=== PATIENT | female | born 1975 | race Caucasian/White ===

== ENCOUNTER 2020-04-04 13:21 | Inpatient (IN) | payer MEDICAID, SELFPAY ==
[~2020-04-04] VITALS: Ht 157.5 cm; Wt 60.8 kg
[2020-04-04 13:55] VITALS: BP 121/76
--- NOTE | 2020-04-04 17:51 | NUR ---
PT MOVED TO BED 10.
[2020-04-04] MEDS ORDERED: ALBUTEROL HFA MDI 90 MCG/ACTUATION 8 GM INH ONE (18:00)
--- NOTE | 2020-04-04 18:14 | NUR ---
RT CALLED TO BEDSIDE.
[2020-04-04 18:26] LABS: BASOPHILS % (AUTO) 0.6 % (0.0-2.0); EOSINOPHILS % (AUTO) 0.4 % (0.0-4.0); HEMOGLOBIN 9.9 g/dL (12.0-16.0); LYMPHOCYTES # (AUTO) 1.6 K/uL (2.5-16.5); LYMPHOCYTES % (AUTO) 25.5 % (20.5-51.1); MEAN CORPUSCULAR HEMOGLOBIN 20 pg (27-31); MEAN CORPUSCULAR HGB CONC 31 g/dL (33-37); MEAN CORPUSCULAR VOLUME 64.2 fL (80-94); MONOCYTES # (AUTO) 0.6 K/uL (0.8-1.0); NEUTROPHILS % (AUTO) 63.5 % (42.2-75.2); PLATELET COUNT (AUTO) 311 K/uL (140-450); RED BLOOD CELL COUNT(AUTO) 4.98 MIL/uL (4.20-5.40); RED CELL DISTRIBUTION WIDTH 18.4 % (11.6-13.7); WHITE BLOOD COUNT (AUTO) 6.3 K/uL (4.8-10.8)
[2020-04-04 18:45] LABS: PROTHROMBIN TIME 9.7 secs (10.8-13.4)
--- NOTE | 2020-04-04 18:50 | NUR ---
FLU/RSV AND URINE COLLECTED AND SENT TO LAB
[2020-04-04 18:51] LABS: ALBUMIN 3.3 g/dL (3.4-5.0); ANION GAP 16.3 (8-16); CARBON DIOXIDE 23.3 mmol/L (21-32); CREATININE 0.7 mg/dL (0.6-1.3); POTASSIUM 3.6 mmol/L (3.5-5.1); TOTAL BILIRUBIN 0.5 mg/dL (0.0-1.0)
[2020-04-04 19:01] LABS: C-REACTIVE PROTEIN QUANT 6.8 mg/dL (0.0-0.9)
[2020-04-04 19:13] LABS: LACTATE DEHYDROGENASE 267 U/L (81-234)
--- NOTE | 2020-04-04 19:22 | NUR ---
RECIEVED REPORT FROM ANCA MERCADO. TRANSFER OF CARE AT THIS TIME.
[2020-04-04 19:29] LABS: APPEARANCE,URINE CLEAR (CLEAR); BILIRUBIN,URINE NEGATIVE (NEGATIVE); BLOOD, URINE 2+ (NEGATIVE); COLOR,URINE YELLOW (YELLOW); LEUKOCYTE ESTERASE ,URINE 1+ (NEGATIVE); NITRITE, URINE NEGATIVE (NEGATIVE); UGLUCOSE NEGATIVE (NEGATIVE)
[2020-04-04 19:42] LABS: RBC,URINE 11-20 (MOD) /HPF (0-5)
--- NOTE | 2020-04-04 20:10 | NUR ---
EKG AT BEDSIDE
--- NOTE | 2020-04-04 20:15 | NUR ---
EKG PERFORMED AT BEDSIDE. EKG READS SINUS RHYTHM @ 98
--- NOTE | 2020-04-04 21:00 | NUR ---
WATER PROVIDED TO PT PER REQUEST. PT RESTING IN BED. EQUAL CHEST RISE AND FALL. SIDE RAILS X1. WHOLESALE PARTS SALESPERSON/PULSE OX IN PLACE. BED LOCKED AND IN LOWEST POSITION.
--- NOTE | 2020-04-04 22:45 | NUR ---
SWABS COLLECTED AND TAKEN TO LAB.
[2020-04-04] MEDS ORDERED: ONDANSETRON 4 MG/2 ML VIAL IM/IVP PRN (23:15)
[2020-04-04] MEDS ORDERED: DOCUSATE SODIUM 100 MG GELCAP PO PRN (23:15)
[2020-04-04] MEDS ORDERED: ACETAMINOPHEN 325 MG TAB PO PRN (23:15)
[2020-04-04] MEDS ORDERED: HYDROcodone/APAP 7.5/325 MG 1 TAB PO PRN (23:15)
[2020-04-04] MEDS ORDERED: guaiFENesin DM 200/20 MG-10 ML 10 ML UDC PO PRN (23:15)
[2020-04-04] MEDS ORDERED: POTASSIUM CHLORIDE 10 MEQ TABER PO PRN (23:15)
[2020-04-04] MEDS ORDERED: ZOLPIDEM 5 MG TAB PO PRN (23:15)
[2020-04-04] MEDS ORDERED: ALBUTEROL HFA MDI 90 MCG/ACTUATION 8 GM INH PRN (23:20)
[2020-04-04] MEDS ORDERED: ALBUTEROL SULFATE/IPRATROPIU 3 ML SOL IH PRN (23:20)
--- NOTE | 2020-04-04 23:25 | NUR ---
REPORT GIVEN TO ANCA JOHNSON. EXT [id number]
--- NOTE | 2020-04-04 23:32 | NUR ---
JAVI BURNS COVID SWABS SENT TO LAB
[2020-04-04 23:48] VITALS: BP 110/73
--- NOTE | 2020-04-04 23:48 | NUR ---
Patient will be admitted to care of . Admited to TELE. Will go to room 130B. Belongings list completed. Report to ANCA JOHNSON.
--- NOTE | 2020-04-04 23:48 | NUR ---
ADMITTED A 45F FROM ER. CAME BY [facility] DUE TO FEVER,SOB, MILD COUGH , GEN WEAKNESS . LOSS OF SMELL.TASTE AND DIARRHEA X 6 DAYS. SHE SAID SHE JUST TOOK TYLENOL, AT HOME. NO OTHER MEDICAL PROBLEM. SKIN INTACT. SHE SAID NOW SHE GET BACK HER APPETITE AND ABLE TO SMELL ANYTHING. VITAL SIGNS TAKEN, AFEBRILE 98.8-HR-89,R-20WITH O2 SAT 96% ON O2 3L/NC. PLAN OF CARE DISCUSSED AND VERBALIZED UNDERSTANDING. ORIENTED TO HOSPITAL ENVIRONMENT AND ROUTINES. INITIATED DROPLET PRECAUTION /ISOLATION FOR COVID FOR SHE WAS TESTED POSITIVE ALMOST A WEEK AGO. FREQ ROUNDS NEEDED. BED ON LOW POSITION. CALL LIGHT PLACED WITHIN REACH. WILL CONTINUE TO MONITOR.
--- NOTE | 2020-04-04 23:55 | NUR ---
PT REFUSING ANY BLOOD TRANSFUSION DUE TO HER PRESYBETERIAN JEHOVAH WITNESS.
[2020-04-05] LABS: CHOL/HDL RATIO 4.1 (1-4.5); FREE T4 (FREE THYROXINE) 1.59 ng/dL (0.76-1.46); MAGNESIUM 2.5 mg/dL (1.8-2.4); PHOSPHORUS 3.7 mg/dL (2.5-4.9); THYROID STIMULATING HORMONE 2.82 uIU/mL (0.34-3.74)
[2020-04-05 00:03] LABS: RSV NEGATIVE (NEGATIVE)
[2020-04-05] MEDS ORDERED: cefTRIAXone 1,000 MG VIAL ONE (00:08)
[2020-04-05] MEDS: NACL 0.9% 1,000 ML IV SCH ×2 (00:19→15:55)
[2020-04-05 01:10] LABS: BARBITURATE, URINE NEGATIVE ng/ml (NEG <=200); BENZODIAZEPINE, URINE NEGATIVE ng/mL (NEG <=200); CANNABINOID, URINE NEGATIVE ng/mL (NEG <=50); COCAINE, URINE NEGATIVE ng/mL (NEG <=300); OPIATE, URINE NEGATIVE ng/mL (NEG <=2000); PHENCYCLIDINE SCREEN,URINE NEGATIVE ng/mL (NEG <=25)
--- NOTE | 2020-04-05 01:30 | NUR ---
MADE ROUNDS. PT IS ASLEEP. NO DISTRESS NOTED. O2 SAT 96%. WILL CONTINUE TO MONITOR.
--- NOTE | 2020-04-05 03:00 | NUR ---
CHECKED ON PT. ASLEEP. O2 SAT ON O23L/NC 95 %. NO DISTRESS NOTED.
[2020-04-05 04:00] VITALS: BP 102/63
--- NOTE | 2020-04-05 05:00 | NUR ---
CHECKED ON PT. AWAKE, NO C/O ANY DISCOMFORT . NO DISTRESS NOTED WITH O2 3L/NC.
[2020-04-05 06:19] LABS: BASOPHILS % (AUTO) 0.3 % (0.0-2.0); EOSINOPHILS # (AUTO) 0.1 K/uL (0-0.4); EOSINOPHILS % (AUTO) 0.8 % (0.0-4.0); HEMATOCRIT 29.1 % (36-48); HEMOGLOBIN 8.9 g/dL (12.0-16.0); LYMPHOCYTES # (AUTO) 1.3 K/uL (2.5-16.5); LYMPHOCYTES % (AUTO) 17.1 % (20.5-51.1); MEAN CORPUSCULAR HEMOGLOBIN 20 pg (27-31); MEAN CORPUSCULAR HGB CONC 31 g/dL (33-37); MEAN CORPUSCULAR VOLUME 64.7 fL (80-94); MONOCYTES # (AUTO) 0.7 K/uL (0.8-1.0); MONOCYTES % (AUTO) 9.4 % (1.7-9.3); NEUTROPHILS # (AUTO) 5.6 K/uL (1.8-7.7); NEUTROPHILS % (AUTO) 72.4 % (42.2-75.2); PLATELET COUNT (AUTO) 322 K/uL (140-450); RED BLOOD CELL COUNT(AUTO) 4.49 MIL/uL (4.20-5.40); WHITE BLOOD COUNT (AUTO) 7.8 K/uL (4.8-10.8)
--- NOTE | 2020-04-05 06:30 | NUR ---
MADE ROUNDS. PT IS AWAKE. DENIESS ANY PAIN NOR DISCOMFORT NOTED.
[2020-04-05 06:57] LABS: ANION GAP 13.4 (8-16); CARBON DIOXIDE 25.3 mmol/L (21-32); CREATININE 0.6 mg/dL (0.6-1.3); POTASSIUM 3.7 mmol/L (3.5-5.1)
--- NOTE | 2020-04-05 07:33 | NUR ---
ENDORSED PT IN STABLE CONDITION TO AM NURSE FOR CONTINUITY OF CARE.
--- NOTE | 2020-04-05 07:35 | NUR ---
RECEIVED PT FROM CLERK FUNERAL DETAIL NURSE, PT IS AWAKE AND ALERT AND ORIENTED, LYING ON THE BED WITH SIDE RAILS UP AND CALL LIGHT WITHIN REACH, IV LINE NOTED ON THE LEFT AC G. 20 WITH NS INFUSING AT 60ML/HR, PT IS ON ROOM AIR AND NO SIGN OF DISTRESS NOTED AND WILL CONTINUE TO MONITOR PT.
--- NOTE | 2020-04-05 07:45 | NUR ---
PATIENT HAS BEEN SCREENED AND CATEGORIZED MODERATE NUTRITION RISK. PATIENT WILL BE SEEN WITHIN 3-5 DAYS OF ADMISSION. 04/07/2020 - 04/09/2020 VALDO CHUA MBA, RD
[2020-04-05 08:00] VITALS: BP 114/85
--- NOTE | 2020-04-05 08:40 | NUR ---
PT'S IV LINE WAS INFILTRATED AND WAS REMOVED, A RE-INSERTION WILL BE DONE.
[2020-04-05] MEDS ORDERED: AZITHROMYCIN 250 MG TAB PO SCH (09:00)
[2020-04-05] MEDS: ZINC SULF 220 MG CAP PO SCH (09:31)
[2020-04-05] MEDS: ASCORBIC ACID 500 MG TAB PO SCH (09:31)
[2020-04-05] MEDS: PANTOPRAZOLE 40 MG TABEC PO SCH (09:31)
--- NOTE | 2020-04-05 09:31 | NUR ---
PT WAS GIVEN THE SCHEDULED AM MEDICATIONS, PARAMETERS CHECKED AND WILL MONITOR PT.
--- NOTE | 2020-04-05 11:40 | NUR ---
A NEW PERIPHERAL LINE WA INSERTED TO PT ON THE RT HAND G. 22.
[2020-04-05 12:00] VITALS: BP 113/82
[2020-04-05] MEDS ORDERED: remdesivir COMMUNICATION ORDER 1 EA MISC MC PRN (14:50)
[2020-04-05] MEDS ORDERED: CLINICAL MONITORING MC PRN (15:20)
--- NOTE | 2020-04-05 15:20 | NUR ---
DR. RIVERA WAS INFORMED THAT PT IS A MANDAEN AND CANNOT HAVE ANY BLOOD TRANSFUSION.
[2020-04-05 16:00] VITALS: BP 111/73
[2020-04-05] MEDS ORDERED: REMDESIVIR (EUA) 200 MG in NACL 0.9% 100 ML IV SCH (16:30)
--- NOTE | 2020-04-05 17:17 | NUR ---
PT WAS GIVEN IVPB REMDESIVIR NOW, WILL MONITOR PT.
--- NOTE | 2020-04-05 19:30 | NUR ---
RECEIVED BEDSIDE REPORT FROM DAY SHIFT NURSE. PATIENT IS AWAKE, ALERT, AND COOPERATIVE. RESPIRATION EVEN UNLABORED ON 3L NC O2. NO DISTRESS NOTED. SATING AT 95%. SKIN IS WARM AND DRY. IV PATENT AND INTACT. PLAN OF CARE WAS DISCUSSED. ALL SAFETY MEASURES IN PLACE. BED IS AT LOW POSITION. CALL LIGHT WITHIN REACH. WILL CONTINUE TO MONITOR.
--- NOTE | 2020-04-05 19:45 | NUR ---
ENDORSED PT TO FIRE CAPTAIN MARINE NURSE FOR CONTINUITY OF CARE.
[2020-04-05 20:00] VITALS: BP 108/74
--- NOTE | 2020-04-05 20:54 | NUR ---
ALL SCHEDULED MEDS WERE GIVEN PER ORDER. NO ASE NOTED. WILL CONTINUE TO MONITOR.
--- NOTE | 2020-04-05 21:55 | NUR ---
PATIENT O2 IS AT 88% TITRATE O2 UP. NOW PATIENT IS SATING 90-91% ON 4L NC O2. WILL CONTINUE TO MONITOR
--- NOTE | 2020-04-05 23:27 | NUR ---
CHECKED PATIENT. PATIENT IS AWAKE WATCHING TV RESPIRATION EVEN UNLABORED ON 4L NC O2. NO DISTRESS NOTED. WILL CONTINUE TO MONITOR.
[2020-04-06] VITALS: BP 117/75
--- NOTE | 2020-04-06 00:16 | NUR ---
VITALS WERE TAKEN. PATIENT IN STABLE CONDITION. NO DISTRESS NOTED. WILL CONTINUE TO MONITOR.
--- NOTE | 2020-04-06 02:26 | NUR ---
CHECKED PATIENT. PATIENT SLEEPING RESPIRATION EVEN UNLABORED ON 4L NC O2. NO DISTRESS NOTED. WILL CONTINUE TO MONITOR.
--- NOTE | 2020-04-06 03:51 | NUR ---
CHECKED PATIENT. PATIENT IS SLEEPING RESPIRATION EVEN UNLABORED ON 4L NC O2. NO DISTRESS NOTED. WILL CONTINUE TO MONITOR.
[2020-04-06 04:00] VITALS: BP 111/82
[2020-04-06] MEDS: NACL 0.9% 1,000 ML IV SCH (04:32)
[2020-04-06 06:21] LABS: BASOPHILS % (AUTO) 0.5 % (0.0-2.0); EOSINOPHILS % (AUTO) 0.1 % (0.0-4.0); HEMATOCRIT 28.3 % (36-48); HEMOGLOBIN 8.7 g/dL (12.0-16.0); LYMPHOCYTES # (AUTO) 1.2 K/uL (2.5-16.5); LYMPHOCYTES % (AUTO) 18.3 % (20.5-51.1); MEAN CORPUSCULAR HEMOGLOBIN 20 pg (27-31); MEAN CORPUSCULAR HGB CONC 31 g/dL (33-37); MEAN CORPUSCULAR VOLUME 65.4 fL (80-94); MONOCYTES # (AUTO) 0.6 K/uL (0.8-1.0); MONOCYTES % (AUTO) 9.1 % (1.7-9.3); NEUTROPHILS # (AUTO) 4.7 K/uL (1.8-7.7); PLATELET COUNT (AUTO) 365 K/uL (140-450); RED BLOOD CELL COUNT(AUTO) 4.33 MIL/uL (4.20-5.40); RED CELL DISTRIBUTION WIDTH 18.2 % (11.6-13.7); WHITE BLOOD COUNT (AUTO) 6.5 K/uL (4.8-10.8)
[2020-04-06] MEDS: ALBUTEROL SULFATE/IPRATROPIU 3 ML SOL IH SCH ×3 (06:54→19:00)
--- NOTE | 2020-04-06 07:15 | NUR ---
ENDORSED PATIENT TO DAY SHIFT NURSE AT BEDSIDE FOR CONTINUITY OF CARE
--- NOTE | 2020-04-06 07:20 | NUR ---
RECEIVED REPORT FROM NIGHT NURSE PATIENT IS AAOX4 ON 4LPM OXYGEN VIA NASAL CANULA, REGULAR DIET, AMBULATORY, SKIN INTACT, IV SITES INTACT AND PATENT ON LEFT AC, REFUSED PLASMA DUE TO PATIENTS JEW( JEHOVA), SAFETY MEASURES IN PLACE AND CALL LIGHT WITHIN REACH. WILL CONTINUE TO MONITOR.
[2020-04-06 07:25] LABS: ANION GAP 13.8 (8-16); CARBON DIOXIDE 24.4 mmol/L (21-32); CREATININE 0.5 mg/dL (0.6-1.3); POTASSIUM 4.2 mmol/L (3.5-5.1)
[2020-04-06 08:00] VITALS: BP 130/91
[2020-04-06] MEDS: FERROUS SULFATE 325 MG TABEC PO SCH ×2 (09:13→16:05)
[2020-04-06] MEDS: ASCORBIC ACID 500 MG TAB PO SCH (09:14)
[2020-04-06] MEDS: ZINC SULF 220 MG CAP PO SCH (09:14)
[2020-04-06] MEDS: PANTOPRAZOLE 40 MG TABEC PO SCH (09:14)
[2020-04-06 09:30] LABS: ALBUMIN 2.9 g/dL (3.4-5.0); BILIRUBIN,DIRECT 0.1 mg/dL (0.0-0.3); TOTAL BILIRUBIN 0.3 mg/dL (0.0-1.0)
--- NOTE | 2020-04-06 09:35 | NUR ---
MEDICATION DUE GIVEN CHECK VITAL SIGNS BP 130/91 WV 96 NO DISTRESS NOTED AND DENIES PAIN. SAFETY MEASURES IN PLACE CALL LIGHT WITHIN REACH.WILL CONTINUE TO MONITOR.
--- NOTE | 2020-04-06 11:02 | NUR ---
MADE ROUNDS AT THIS TIME, STILL WITH SHORTNESS OF BREATH WHEN MOVING AROUND, ENCOURAGED TO DO DEEP BREATHING EXERCISES AND PT VERBALIZES UNDERSTANDING. CALL LIGHT WITHIN REACH.
[2020-04-06 12:00] VITALS: BP 121/74
--- NOTE | 2020-04-06 14:45 | NUR ---
MADE ROUNDS PATIENT IS SLEEPING AND RESTING NO DISTRESS NOTED
[2020-04-06 16:00] VITALS: BP 124/80
[2020-04-06] MEDS ORDERED: REMDESIVIR (EUA) 100 MG in NACL 0.9% 100 ML IV SCH (16:30)
--- NOTE | 2020-04-06 16:30 | NUR ---
MEDICATION DUE GIVEN, INFUSING WELL, PATIENT IS STABLE AND NO DISTRESS NOTED.OXYGEN SATURATION AT 95%
--- NOTE | 2020-04-06 19:12 | NUR ---
ENDORSED TO NIGHT NURSE FOR CONTINUITY OF CARE. PT IS STABLE.
--- NOTE | 2020-04-06 19:27 | NUR ---
RECEIVED BEDSIDE REPORT FROM DAY SHIFT NURSE. PATIENT IS AWAKE ON HER PHONE RESPIRATION EVEN UNLABORED ON 4L NC O2. NO DISTRESS NOTED. SKIN IS WARM AND DRY. IV PATENT AND INTACT. PLAN OF CARE WAS DISCUSSED. ALL SAFETY MEASURES IN PLACE. BED IS AT LOW POSITION. CALL LIGHT WITHIN REACH, WILL CONTINUE TO MONITOR.
[2020-04-06 20:00] VITALS: BP 130/77
--- NOTE | 2020-04-06 21:20 | NUR ---
ALL SCHEDULED MEDS WERE GIVEN PER ORDER. NO ASE NOTED. WILL CONTINUE TO MONITOR.
--- NOTE | 2020-04-06 23:20 | NUR ---
CHECKED PATIENT. PATIENT IS AWAKE WATCHING TV NO DISTRESS NOTED. WILL CONTINUE TO MONITOR.
--- NOTE | 2020-04-06 23:27 | NUR ---
DUONEB TX BEING HOLD DUE TO COVID POSITIVE PRECAUTION
[2020-04-07] VITALS: BP 138/85
[2020-04-07] MEDS ORDERED: cefTRIAXone 1,000 MG VIAL ONE (00:20)
[2020-04-07] MEDS: ALBUTEROL SULFATE/IPRATROPIU 3 ML SOL IH SCH ×4 (01:00→19:00)
[2020-04-07] MEDS: NACL 0.9% 1,000 ML IV SCH ×2 (01:15→18:17)
--- NOTE | 2020-04-07 02:17 | NUR ---
CHECKED PATIENT. PATIENT IS SLEEPING RESPIRATION EVEN UNLABORED ON 4L NC O2. NO DISTRESS NOTED. WILL CONTINUE TO MONITOR.
--- NOTE | 2020-04-07 03:05 | NUR ---
PATIENT WOKE UP FROM BEING COLD. GAVE BLANKET. WILL CONTINUE TO MONITOR
[2020-04-07 04:00] VITALS: BP 134/87
--- NOTE | 2020-04-07 04:30 | NUR ---
CHECKED PATIENT. PATIENT STILL SLEEPING NO DISTRESS NOTED. WILL CONTINUE TO MONITOR
[2020-04-07 06:07] LABS: T4 (THYROXINE) 11.9 ug/dL (4.5-12.0)
--- NOTE | 2020-04-07 07:20 | NUR ---
ENDORSED PATIENT TO DAY SHIFT NURSE AT BEDSIDE FOR CONTINUITY OF CARE
--- NOTE | 2020-04-07 07:25 | NUR ---
RECEIVED PT FROM CLEAT FEEDER NURSE, CLEMENCIA, PT IS AWAKE AND LYING ON THE BED WITH SAFETY AND FALL PRECAUTION IN PLACE, IV LINE NOTED ON THE RT HAND G. 22 WITH NS INFUSING AT 60ML/HR, INTACT, PT IS ON O2 4L NC, SATURATION AT 95%, NO SIGN OF DISTRESS NOTED AND WILL MONITOR PT.
[2020-04-07 08:00] VITALS: BP 128/78
[2020-04-07] MEDS: FERROUS SULFATE 325 MG TABEC PO SCH ×2 (08:25→17:21)
[2020-04-07] MEDS: ZINC SULF 220 MG CAP PO SCH (08:28)
[2020-04-07] MEDS: PANTOPRAZOLE 40 MG TABEC PO SCH (08:28)
[2020-04-07] MEDS: ASCORBIC ACID 500 MG TAB PO SCH (08:28)
--- NOTE | 2020-04-07 08:28 | NUR ---
PT WAS GIVEN THE SCHEDULED AM MEDICATIONS NOW, DENIES PAIN AND TOLERATED MEDS, WILL MONITOR PT.
[2020-04-07 09:13] LABS: FERRITIN 60 ng/mL (15-150); TRANSFERRIN 274 mg/dL (192-364)
[2020-04-07 09:14] LABS: BASOPHILS % (AUTO) 0.4 % (0.0-2.0); EOSINOPHILS % (AUTO) 0.1 % (0.0-4.0); HEMATOCRIT 30.4 % (36-48); HEMOGLOBIN 9.2 g/dL (12.0-16.0); LYMPHOCYTES # (AUTO) 2.2 K/uL (2.5-16.5); LYMPHOCYTES % (AUTO) 24.5 % (20.5-51.1); MEAN CORPUSCULAR HEMOGLOBIN 20 pg (27-31); MEAN CORPUSCULAR HGB CONC 30 g/dL (33-37); MEAN CORPUSCULAR VOLUME 65.8 fL (80-94); MONOCYTES # (AUTO) 0.9 K/uL (0.8-1.0); MONOCYTES % (AUTO) 9.7 % (1.7-9.3); NEUTROPHILS # (AUTO) 5.9 K/uL (1.8-7.7); NEUTROPHILS % (AUTO) 65.3 % (42.2-75.2); PLATELET COUNT (AUTO) 485 K/uL (140-450); RED BLOOD CELL COUNT(AUTO) 4.63 MIL/uL (4.20-5.40); RED CELL DISTRIBUTION WIDTH 18.8 % (11.6-13.7); WHITE BLOOD COUNT (AUTO) 9.1 K/uL (4.8-10.8)
[2020-04-07 09:28] LABS: CARBON DIOXIDE 22.8 mmol/L (21-32); CREATININE 0.6 mg/dL (0.6-1.3); POTASSIUM 3.8 mmol/L (3.5-5.1)
[2020-04-07 09:30] LABS: BILIRUBIN,DIRECT 0.1 mg/dL (0.0-0.3); TOTAL BILIRUBIN 0.3 mg/dL (0.0-1.0)
[2020-04-07] MEDS: REMDESIVIR (EUA) 100 MG in NACL 0.9% 100 ML IV SCH (10:29)
--- NOTE | 2020-04-07 10:29 | NUR ---
REMDESIVIR IVPB WAS GIVEN TO PT NOW, WILL MONITOR PT.
[2020-04-07] MEDS ORDERED: REMDESIVIR (EUA) 100 MG in NACL 0.9% 100 ML IV SCH (10:30)
[2020-04-07 12:00] VITALS: BP 119/67
--- NOTE | 2020-04-07 14:14 | NUR ---
PT IS RESTING ON THE BED NOW, SATURATION IS 98%, NO SIGN OF DISTRESS NOTED AND WILL BE MONITORED.
[2020-04-07 16:00] VITALS: BP 121/71
--- NOTE | 2020-04-07 17:21 | NUR ---
PT WAS GIVEN THE SCHEDULED MEDICATIONS, NO SIGN OF DISTRESS NOTED AND WILL MONITOR PT.
--- NOTE | 2020-04-07 19:00 | NUR ---
RECEIVED BEDSIDE REPORT FROM DAY SHIFT NURSE. PATIENT IS AWAKE, ALERT, AND COOPERATIVE. RESPIRATION EVEN UNLABORED ON 4L NC O2. NO DISTRESS NOTED. SKIN IS WARM AND DRY. IV PATENT AND INTACT. PLAN OF CARE WAS DISCUSSED. ALL SAFETY MEASURE IN PLACE. BED IS AT LOW POSITION. CALL LIGHT WITHIN REACH. WILL CONTINUE TO MONITOR.
--- NOTE | 2020-04-07 19:20 | NUR ---
ENDORSED PT TO ORTHOTIC/PROSTHETIC PRACTITIONER NURSE FOR CONTINUITY OF CARE.
[2020-04-07 20:00] VITALS: BP 117/78
--- NOTE | 2020-04-07 21:17 | NUR ---
ALL SCHEDULED MEDS WERE GIVEN PER ORDER NO ASE NOTED. WILL CONTINUE TO MONITOR
--- NOTE | 2020-04-07 22:45 | NUR ---
TITRATE PATIENT O2 TO 3L NC. PATIENT IS SATING 94% WITH NO DISTRESS NOTED. WILL CONTINUE TO MONITOR.
--- NOTE | 2020-04-07 22:52 | NUR ---
TX (DUONEB) NOT GIVEN AT THIS TIME DUE TO COVID PROTOCOL
[2020-04-08] VITALS: BP 124/76
--- NOTE | 2020-04-08 00:05 | NUR ---
VITALS WERE TAKEN. PATIENT IN STABLE CONDITION. NO DISTRESS NOTED. WILL CONTINUE TO MONITOR
--- NOTE | 2020-04-08 02:08 | NUR ---
CHECKED ON PATIENT. PATIENT SLEEPING RESPIRATION EVEN UNLABORED ON 3L NC O2. SATING 95% NO DISTRESS NOTED. WILL CONTINUE TO MONITOR.
[2020-04-08 04:00] VITALS: BP 130/87
--- NOTE | 2020-04-08 04:30 | NUR ---
VITALS WERE TAKEN. PATIENT IN STABLE CONDITION. WILL CONTINUE TO MONITOR
[2020-04-08] MEDS: ALBUTEROL SULFATE/IPRATROPIU 3 ML SOL IH SCH ×2 (06:45→12:55)
[2020-04-08 07:02] LABS: BASOPHILS % (AUTO) 0.2 % (0.0-2.0); EOSINOPHILS % (AUTO) 0.3 % (0.0-4.0); HEMATOCRIT 28.2 % (36-48); HEMOGLOBIN 8.8 g/dL (12.0-16.0); LYMPHOCYTES # (AUTO) 2.3 K/uL (2.5-16.5); LYMPHOCYTES % (AUTO) 28.3 % (20.5-51.1); MEAN CORPUSCULAR HEMOGLOBIN 20 pg (27-31); MEAN CORPUSCULAR HGB CONC 31 g/dL (33-37); MEAN CORPUSCULAR VOLUME 65.7 fL (80-94); MONOCYTES # (AUTO) 0.8 K/uL (0.8-1.0); MONOCYTES % (AUTO) 9.9 % (1.7-9.3); NEUTROPHILS # (AUTO) 5.1 K/uL (1.8-7.7); NEUTROPHILS % (AUTO) 61.3 % (42.2-75.2); PLATELET COUNT (AUTO) 468 K/uL (140-450); WHITE BLOOD COUNT (AUTO) 8.3 K/uL (4.8-10.8)
[2020-04-08 07:06] LABS: ANION GAP 12.7 (8-16); CARBON DIOXIDE 26.3 mmol/L (21-32); CREATININE 0.6 mg/dL (0.6-1.3)
--- NOTE | 2020-04-08 07:23 | NUR ---
ENDORSED PATIENT TO DAY SHIFT NURSE AT BEDSIDE FOR CONTINUITY OF CARE
[2020-04-08 07:39] LABS: PHOSPHORUS 4.2 mg/dL (2.5-4.9)
[2020-04-08 07:50] VITALS: BP 117/72
--- NOTE | 2020-04-08 07:50 | NUR ---
PT RESTING SEMI FOWLERS AND STATES NO PAIN. TOLERATING NC 3 LPM.
[2020-04-08] MEDS: PANTOPRAZOLE 40 MG TABEC PO SCH (08:31)
[2020-04-08] MEDS: ASCORBIC ACID 500 MG TAB PO SCH (08:31)
[2020-04-08] MEDS: ZINC SULF 220 MG CAP PO SCH (08:31)
[2020-04-08] MEDS: FERROUS SULFATE 325 MG TABEC PO SCH ×2 (08:31→17:02)
[2020-04-08] MEDS: ENOXAPARIN 40 MG/0.4 ML SYR SUBQ SCH (08:32)
--- NOTE | 2020-04-08 10:38 | NUR ---
PT STATES NO PAIN AND WAS ABLE TO AMBULATE W/ STEADY GAIT TO THE BATHROOM. TOLERATING NC 3 LPM.
[2020-04-08] MEDS: NACL 0.9% 1,000 ML IV SCH (10:44)
[2020-04-08] MEDS: REMDESIVIR (EUA) 100 MG in NACL 0.9% 100 ML IV SCH (10:44)
[2020-04-08 10:53] LABS: ALBUMIN 2.8 g/dL (3.4-5.0); BILIRUBIN,DIRECT 0.1 mg/dL (0.0-0.3); TOTAL BILIRUBIN 0.2 mg/dL (0.0-1.0)
[2020-04-08 12:00] VITALS: BP 116/75
--- NOTE | 2020-04-08 13:54 | NUR ---
PT STATES NO PAIN AT THIS TIME AND RESTING ON BED WHILE WATCHING VIDEOS ON PHONE. PT TOLERATING NC 3LPM.
--- NOTE | 2020-04-08 14:19 | NUR ---
(04/08/20) RD INITIAL ASSESSMENT COMPLETED PLEASE REFER TO NUTRITION ASSESSMENT UNDER CARE ACTIVITY FOR ESTIMATED NUTRITIONAL NEEDS. RD RECOMMENDATIONS: 1. CONTINUE ON REGULAR DIET TOLERATED. 2. CONSULT RDN PRN. 3. RD WILL F/U 3-5 DAYS; MODERATE RISK. CHIDI PARRA MS, RDN
[2020-04-08 16:00] VITALS: BP 124/80
--- NOTE | 2020-04-08 17:02 | NUR ---
PT RESTING HIGH FOWLERS ON BED AND STATES NO PAIN. TOLERATING NC 3LPM.
--- NOTE | 2020-04-08 18:36 | NUR ---
PT COMFORTABLE IN BED AND STATES NO PAIN OR DISCOMFORT. PT REQUESTED EAR PLUGS SO SHE CAN BE ABLE TO SLEEP. PT STABLE AND WILL ENDORSE CARE TO DERRICK BARGE OPERATOR RN.
--- NOTE | 2020-04-08 19:25 | NUR ---
RECEIVED PT AAOX4 , NID - O2 SAT WNL , ON 02 AT 4LPM /NC IV SITE INTACT AND PATENT , DENIES ANY PAIN . PLAN OF CARE DISCUSSED NEEDS REINFORCEMENT DUE TO LANGUAGE BARRIER . SAFETY MEASURES IN PLACE - CALL LIGHT WITHIN REACH . ON TELE MONITOR - SR . ALEM CONT. TO MONITOR .
[2020-04-08 21:22] VITALS: BP 114/84
[2020-04-08] MEDS ORDERED: cefTRIAXone 1,000 MG VIAL ONE (22:24)
--- NOTE | 2020-04-09 | NUR ---
MADE ROUNDS , NO S/SX OF ACUTE DISTRESS NOTED AT THIS TIME . CALL LIGHT WITHIN REACH .
[2020-04-09 00:54] VITALS: BP 92/58
[2020-04-09] MEDS: NACL 0.9% 1,000 ML IV SCH (03:15)
--- NOTE | 2020-04-09 04:00 | NUR ---
O2 SAT WNL . ON TELE MONITOR . NO S/SX OF ACUTE DISTRESS NOTED . CALL LIGHT WITHIN REACH .
[2020-04-09 04:10] VITALS: BP 114/70
--- NOTE | 2020-04-09 06:00 | NUR ---
AWAKE , NO COMPLAIN MADE .
[2020-04-09 07:18] LABS: BASOPHILS % (AUTO) 0.2 % (0.0-2.0); EOSINOPHILS % (AUTO) 0.2 % (0.0-4.0); HEMATOCRIT 29.7 % (36-48); HEMOGLOBIN 9.1 g/dL (12.0-16.0); LYMPHOCYTES # (AUTO) 2.3 K/uL (2.5-16.5); LYMPHOCYTES % (AUTO) 25.4 % (20.5-51.1); MEAN CORPUSCULAR HEMOGLOBIN 20 pg (27-31); MEAN CORPUSCULAR HGB CONC 31 g/dL (33-37); MEAN CORPUSCULAR VOLUME 65.6 fL (80-94); MONOCYTES % (AUTO) 11.1 % (1.7-9.3); NEUTROPHILS # (AUTO) 5.6 K/uL (1.8-7.7); NEUTROPHILS % (AUTO) 63.1 % (42.2-75.2); PLATELET COUNT (AUTO) 564 K/uL (140-450); RED BLOOD CELL COUNT(AUTO) 4.53 MIL/uL (4.20-5.40); RED CELL DISTRIBUTION WIDTH 19.1 % (11.6-13.7); WHITE BLOOD COUNT (AUTO) 8.9 K/uL (4.8-10.8)
--- NOTE | 2020-04-09 07:20 | NUR ---
RECEIVED REPORT FROM NIGHT NURSE PATIENT IS AAOX4, AMBULATORY, ON 3LPM OXYGEN VIA NC, IV SITES INTACT AND PATENT ON LEFT HAND, SKIN INTACT. SAFETY MEASURES IN PLACE CALL LIGHT WITHIN REACH. WILL CONTINUE TO MONITOR,
[2020-04-09 07:24] LABS: MAGNESIUM 2.1 mg/dL (1.8-2.4); PHOSPHORUS 4.1 mg/dL (2.5-4.9)
[2020-04-09 08:00] VITALS: BP 121/78
[2020-04-09 08:22] LABS: ANION GAP 14.3 (8-16); CARBON DIOXIDE 22.6 mmol/L (21-32); CREATININE 0.6 mg/dL (0.6-1.3); POTASSIUM 3.9 mmol/L (3.5-5.1)
--- NOTE | 2020-04-09 09:00 | NUR ---
MEDICATION DUE GIVEN, PATIENT SITTING AND EATING, NO DISTRESS NOTED, VITAL SIGNS CHECK PRIOR TP MEDICATION BP 130/71 OK 73. SAFETY MEASURES IN PLACE CALL LIGHT WITHIN REACH. WILL CONTINUE TO MONITOR.
[2020-04-09] MEDS: ZINC SULF 220 MG CAP PO SCH (09:07)
[2020-04-09] MEDS: FERROUS SULFATE 325 MG TABEC PO SCH (09:07)
[2020-04-09] MEDS: ASCORBIC ACID 500 MG TAB PO SCH (09:07)
[2020-04-09] MEDS: PANTOPRAZOLE 40 MG TABEC PO SCH (09:07)
[2020-04-09] MEDS: ENOXAPARIN 40 MG/0.4 ML SYR SUBQ SCH (09:17)
[2020-04-09] MEDS ORDERED: ZINC220C28 PO (09:22)
[2020-04-09] MEDS ORDERED: FER325 PO (09:22)
[2020-04-09] MEDS ORDERED: DEXA6TAB1 PO (09:22)
[2020-04-09] MEDS ORDERED: VITC500 PO (09:22)
[2020-04-09] MEDS ORDERED: ASPI-1822 PO (09:22)
[2020-04-09] MEDS ORDERED: CHOL400T12 PO (09:22)
[2020-04-09 09:53] LABS: ALBUMIN 2.8 g/dL (3.4-5.0); BILIRUBIN,DIRECT 0.1 mg/dL (0.0-0.3); TOTAL BILIRUBIN 0.2 mg/dL (0.0-1.0)
[2020-04-09] MEDS: REMDESIVIR (EUA) 100 MG in NACL 0.9% 100 ML IV SCH (10:48)
--- NOTE | 2020-04-09 11:00 | NUR ---
TORRIE LLANES: RECEIVED ORDER FOR HOME 02. FAXED ORDER TO [facility] PATIENT WILL BE RON PAY. CONTACTED PATIENTS RASHAWN FARIAS [phone] USING ELECTRICAL HIGH TENSION TESTER. DISCUSSED RON PAY FOR HOME 02 BUT NO ANSWER. Addendum: 04/09/20 at 1154 by Annie Taylor TORRIE LLANES: SPOKE TO LEAH FROM [facility] THEY RAN THE PATIENTS [employer]EN[facility] AND [facility] WILL BE ABLE TO COVER THE HOME 02
--- NOTE | 2020-04-09 12:45 | NUR ---
PATIENT PUT ON ROOM AIR AND OXYGEN SATURATION AT 90%
--- NOTE | 2020-04-09 13:52 | NUR ---
PATIENT ON ROOM AIR OXYGEN SATURATION AT 98% NO DISTRESS NOTED AND DENIES PAIN.
--- NOTE | 2020-04-09 16:40 | NUR ---
DISCHARGED INSTRUCTIONS GIVEN TO THE PATIENT WITH THE USE OF A PSYCHIATRIC TECHNICIAN ASSISTANT DARION ID # [id number] ENCOURAGED TO FOLLOWUP WITH PCP IN 5 BUSINESS DAYS AND TO ISOLATE SELF FOR 2 WEEKS AND CONTINUE MEDICATION, ENCOURAGED TO SEEK MEDICAL HELP IN CASE OF EMERGENCY AND TO CONTINUE EXERCISES AT HOME AND EAT HEALTHY. REMOVE ID BANDS IV SITES INTACT AND PATENT NO BLEEDING NOTED. REMOVED TELEMONITOR AND RETURNED TO SEISMIC PROSPECTING OBSERVER HELPER. CHANGED PT TO OWN CLOTHES, ANSWERED PATIENT QUESTION, EXCORTED TO FRONT LOBBY PATIENT IS DISCHARGED TO HOME . PT IS STABLE
== END 2020-04-09 16:37 | disposition home or self-care (01) | DRG 720 ==
LOC: MED 13:21 → MMU 22:31 → MTU 04-08 09:15
PROVIDERS: ADMIT Family Medicine; ATTEND Family Medicine
PROC: XW033E5 Introduction of Remdesivir Anti-infective into Peripheral Vein, Percutaneous Approach, New Technology Group 5 (ICD-10-PCS; principal; 2020-04-09)
DX: A41.9 Sepsis, unspecified organism (principal); U07.1 COVID-19; J12.89 Other viral pneumonia; J96.01 Acute respiratory failure with hypoxia; E44.1 Mild protein-calorie malnutrition; D50.9 Iron deficiency anemia, unspecified; N39.0 Urinary tract infection, site not specified; B96.89 Other specified bacterial agents as the cause of diseases classified elsewhere; E78.5 Hyperlipidemia, unspecified; R74.01 Elevation of levels of liver transaminase levels; Z68.24 Body mass index [BMI] 24.0-24.9, adult; Z82.49 Family history of ischemic heart disease and other diseases of the circulatory system
CPT/HCPCS: 36415; 36600; 71045; 80048; 80053; 80076; 80305; 81001; 82150; 82550; 82607; 82728; 82746; 82803; 83036; 83540; 83605; 83615; 83690; 83735; 83880; 84100; 84436; 84439; 84443; 84479; 84484; 85025; 85045; 85379; 85384; 85610; 85651; 85730; 86140; 86886; 86900; 86901; 87040; 87081; 87086; 87420; 87804; 93005; 96365; 99291; J0696; J1644; J1650; J7060; U0003